=== PATIENT | female | born 1950 | race African-American/Black ===

== ENCOUNTER 2016-09-15 17:31 | Emergency (ER) | payer MEDICARE, OTHER ==
[~2016-09-15] VITALS: Ht 167.6 cm; Wt 112.0 kg
[2016-09-15 17:41] VITALS: BP 130/79
--- NOTE | 2016-09-15 17:47 | NUR ---
Patient to OF.
--- NOTE | 2016-09-15 17:48 | NUR ---
rhino rockets placed to marielle nares--pt tolerating well with minimal discomfort---no s/s resp distress
--- NOTE | 2016-09-15 18:09 | NUR ---
Dr. Carlos tuckeruting patient.
[2016-09-15] MEDS ORDERED: HYDROcodone/APAP 10/325 MG 1 TAB TAB PO STA (18:12)
[2016-09-15] MEDS ORDERED: LIDOCAINE VISCOUS 2% 20 ML UDC ONE (18:25)
--- NOTE | 2016-09-15 18:26 | NUR ---
66/F present to ER c/o epistaxis both nares x 9am today--denies trauma, denies recent illness moderate about of sanguineous drainage noted from right nare more so than left denies headache, full clear speech--denies sob, uses wheelchair; hx--spinal stenosis, arthritis, htn, cad, mi 06/2016, gout, copd; rx---losartan, hydrochlorothiazide, naprosyn, atorvastatin,allopurinol. ERMD NOTIFIED OF PATIENT STATUS.
[2016-09-15 19:21] VITALS: BP 146/49
--- NOTE | 2016-09-15 19:21 | NUR ---
Patient discharged with v/s stable. Written and verbal after care instructions given and explained. Patient alert, oriented and verbalized understanding of instructions. Ambulatory with steady gait. All questions addressed prior to discharge. ID band removed. Patient advised to follow up with ent, information provided. Rx of norco, augmentin given. Patient educated on indication of medication including possible reaction and side effects. Opportunity to ask questions provided and answered.
== END 2016-09-15 19:21 | disposition home or self-care (01) ==
LOC: MED 17:31
DX: R04.0 Epistaxis (principal); I25.2 Old myocardial infarction; I10 Essential (primary) hypertension; J44.9 Chronic obstructive pulmonary disease, unspecified; M10.9 Gout, unspecified
CPT/HCPCS: 30901; 99284